=== PATIENT | female | born 1965 | race Caucasian/White ===

== ENCOUNTER → 2018-01-09 | Day surgery (SDC) | payer OTHER ==
[~2018-01-09] MED LIST: 0.9 % SODIUM CHLORIDE 10 ML DISP.SYRIN. IV; CALCIUM CARBONATE 500 MG TAB.CHEW PO; DEXAMETHASONE SOD PHOS 20 MG/5 ML VIAL.; GLYCOPYRROLATE 1 MG/5 ML VIAL.; HYDROcodone/APAP 5/325MG 1 TAB TABLET PO; LIDOCAINE 1% PF 2 ML VIAL. ID; LIDOCAINE 2% PF Vial for OR 5 ML VIAL.; MAG HYDROX/ALUMINUM HYD/SIMETH 30 ML ORAL.SUSP PO; MIDAZOLAM HCL/PF 2 MG/2 ML VIAL.; MORPHINE SULFATE 2 MG/ML DISP.SYRIN. IV; NALOXONE 0.4 MG/ML VIAL. IV; NEOSTIGMINE METHYLSULFATE 5 MG/5 ML SYRINGE.; ONDANSETRON PF 4 MG/2 ML VIAL.; ONDANSETRON PF 4 MG/2 ML VIAL. IV; PROCHLORPERAZINE 10 MG/2 ML VIAL. IV; PROPOFOL 20 ML IV; ROCURONIUM 50 MG/5 ML VIAL.; SIMETHICONE 80 MG TAB.CHEW PO; ceFAZolin 2GM PREMIX 2 GM/50 ML BAG IV; diphenhydrAMINE 50 MG/ML VIAL IV; diphenhydrAMINE HCL 25 MG CAPSULE PO; ePHEDrine PF IN SALINE 50 MG/5 ML DISP.SYRIN IV; fentaNYL PF VIAL 100 MCG/2 ML VIAL; fentaNYL PF VIAL 100 MCG/2 ML VIAL IV; fentaNYL PF VIAL 250 MCG/5 ML VIAL
[2018-01-09] MEDS: IV RINGERS,LACTATED 1000ML 1,000 ML IV (09:22)
[2018-01-09] MEDS: BUPIVACAINE-EPI 0.25%-1:200000 50 ML VIAL. (10:49)
[2018-01-09] MEDS: fentaNYL PF VIAL 100 MCG/2 ML VIAL IV ×2 (11:36→12:14)
[2018-01-09] MEDS: oxyCODONE/APAP 5/325 1 TAB TABLET PO (12:13)
== END ==
LOC: SURG 08:45
DX: Z30.2 Encounter for sterilization (principal); E03.9 Hypothyroidism, unspecified; F41.9 Anxiety disorder, unspecified; Z98.890 Other specified postprocedural states; Z87.440 Personal history of urinary (tract) infections; Z72.89 Other problems related to lifestyle; Z79.899 Other long term (current) drug therapy; Z80.41 Family history of malignant neoplasm of ovary
CPT/HCPCS: 58661; 88305; A7015; J0690; J1100; J2001; J2250; J2405; J2704; J2710; J3010; J3490; J7030; J7120